=== PATIENT | female | born 1990 | race African-American/Black ===

== ENCOUNTER 2016-11-03 10:12 | Emergency (ER) | payer OTHER ==
[2016-11-03 10:15] VITALS: BP 129/67; PULSE 140; RESP 18; TEMP 99; O2SAT 97
[2016-11-03] MEDS ORDERED: diphenhydrAMINE HCL 50 MG/ML VIAL IV PUSH ONE (11:15)
[2016-11-03] MEDS ORDERED: PROCHLORPERAZINE INJ 10 MG/2 ML VIAL IV PUSH ONE (11:15)
[2016-11-03] MEDS ORDERED: SODIUM CHLOR 0.9% 1000 ML INJ 1,000 ML IV ONE ×2 (11:15→12:30)
[2016-11-03 11:58] LABS: BASOPHIL % 0.3 % (0.0-2.0); EOSINOPHIL % 0.1 % (0.0-4.0); LYMPH % 3.5 % (9.0-44.0); LYMPHOCYTE # 0.5 TH/MM3 (1.0-4.8); MEAN CELL VOLUME 65.2 FL (80.0-100.0); MEAN CORPUSCULAR HEMOGLOBIN 20.1 PG (27.0-34.0); MEAN CORPUSCULAR HGB CONC 30.9 % (32.0-36.0); MONO % 5.1 % (0.0-8.0); PLATELET COUNT 379 TH/MM3 (150-450); RED BLOOD COUNT 4.44 MIL/MM3 (4.00-5.30); RED CELL DISTRIBUTION WIDTH 18.8 % (11.6-17.2); WHITE BLOOD COUNT 14.3 TH/MM3 (4.0-11.0)
--- NOTE | 2016-11-03 12:00 | PD ---
HPI Chief Complaint: Cardiac Complaint Time Seen by Provider: 11:00 Travel History International Travel<30 days: No Contact w/Intl Traveler<30days: No Traveled to known affect area: No History of Present Illness HPI Is a 26 year-old woman who presents to the emergency department complaining that she woke up with pleuritic left-sided chest pain started about 1 AM last night. She is multiple other complaints including a pounding headache, some chills but no fever, as well as urinary frequency and urgency. She has a history of chest wall pain that she states she gets once a year or so, lasting a couple weeks, happening at least 4-5 times in the past. She also states she gets headaches daily, but this headache is more "pounding" and typical headaches that she gets. History Past Medical History Medical History: Denies Significant Hx Menopausal: No : 1 Para: 1 Social History Alcohol Use: No Tobacco Use: No Allergies-Medications (Allergen,Severity, Reaction): Coded Allergies: Toradol (Verified Allergy, Severe, LIPS SWELLING, 04/21/16) Reported Meds & Prescriptions Reported Meds & Active Scripts Active No Active Prescriptions or Reported Medications Review of Systems Except as stated in HPI: all other systems reviewed are Neg Physical Exam Narrative GENERAL: Well-appearing obese 26 year-old woman, no acute distress. SKIN: Focused skin assessment warm/dry. HEAD: Atraumatic. Normocephalic. EYES: Pupils equal and round. No scleral icterus. No injection or drainage. ENT: No nasal bleeding or discharge. Mucous membranes pink and moist. NECK: Trachea midline. No JVD. No meningismus. Moves neck freely. CARDIOVASCULAR: Heart rate rapid but regular. No murmurs. RESPIRATORY: No accessory muscle use. Clear to auscultation. Breath sounds equal bilaterally. GASTROINTESTINAL: Abdomen soft, non-tender, nondistended. Hepatic and splenic margins not palpable. MUSCULOSKELETAL: No obvious deformities. No clubbing. No cyanosis. No edema. NEUROLOGICAL: Awake and alert. No obvious cranial nerve deficits. Motor grossly within normal limits. Normal speech. PSYCHIATRIC: Appropriate mood and affect; insight and judgment normal. Data Data Last Documented VS Vital Signs Date Time Temp Pulse Resp B/P Pulse Ox O2 Delivery O2 Flow Rate FiO2 11/03/16 12:36 98.5 108 18 124/56 97 Room Air Orders Electrocardiogram (11/03/16 ) Chest, Pa & Lat (11/03/16 ) Iv Access Insert/Monitor (11/03/16 11:15) Prochlorperazine Inj (Compazine Inj) (11/03/16 11:15) Diphenhydramine Inj (Benadryl Inj) (11/03/16 11:15) Complete Blood Count With Diff (11/03/16 11:15) Comprehensive Metabolic Panel (11/03/16 11:15) Ua Includes Microscopic (11/03/16 11:15) Ed Urine Pregnancytest Poc (11/03/16 11:15) Troponin I (11/03/16 11:15) Sodium Chlor 0.9% 1000 Ml Inj (Ns 1000 M (11/03/16 11:15) Sodium Chlor 0.9% 1000 Ml Inj (Ns 1000 M (11/03/16 12:30) Ed Poc Ultrasound (11/03/16 ) Naproxen (Naprosyn) (11/03/16 12:45) Labs Laboratory Tests Test 11/03/16 11/03/16 11:32 13:15 White Blood Count 14.3 TH/MM3 Red Blood Count 4.44 MIL/MM3 Hemoglobin 8.9 GM/DL Hematocrit 29.0 % Mean Corpuscular Volume 65.2 FL Mean Corpuscular Hemoglobin 20.1 PG Mean Corpuscular Hemoglobin 30.9 % Concent Red Cell Distribution Width 18.8 % Platelet Count 379 TH/MM3 Mean Platelet Volume 7.0 FL Neutrophils (%) (Auto) 91.0 % Lymphocytes (%) (Auto) 3.5 % Monocytes (%) (Auto) 5.1 % Eosinophils (%) (Auto) 0.1 % Basophils (%) (Auto) 0.3 % Neutrophils # (Auto) 13.0 TH/MM3 Lymphocytes # (Auto) 0.5 TH/MM3 Monocytes # (Auto) 0.7 TH/MM3 Eosinophils # (Auto) 0.0 TH/MM3 Basophils # (Auto) 0.0 TH/MM3 CBC Comment AUTO DIFF Differential Comment AUTO DIFF CONFIRMED Sodium Level 137 MEQ/L Potassium Level 3.6 MEQ/L Chloride Level 104 MEQ/L Carbon Dioxide Level 23.9 MEQ/L Anion Gap 9 MEQ/L Blood Urea Nitrogen 9 MG/DL Creatinine 0.73 MG/DL Estimat Glomerular Filtration 115 ML/MIN Rate Random Glucose 97 MG/DL Calcium Level 8.4 MG/DL Total Bilirubin 0.4 MG/DL Aspartate Amino Transf 9 U/L (AST/SGOT) Alanine Aminotransferase 16 U/L (ALT/SGPT) Alkaline Phosphatase 101 U/L Troponin I LESS THAN 0.02 NG/ML Total Protein 7.4 GM/DL Albumin 2.8 GM/DL Urine Color LIGHT-YELLOW Urine Turbidity CLEAR Urine pH 7.0 Urine Specific [place] 1.007 Urine Protein NEG mg/dL Urine Glucose (UA) NEG mg/dL Urine Ketones NEG mg/dL Urine Occult Blood NEG Urine Nitrite NEG Urine Bilirubin NEG Urine Urobilinogen LESS THAN 2.0 MG/DL Urine Leukocyte Esterase NEG Urine RBC LESS THAN 1 /hpf Urine WBC 1 /hpf Urine Squamous Epithelial <1 /hpf Cells Urine Bacteria RARE /hpf Urine Mucus FEW /lpf MDM Medical Decision Making Medical Screen Exam Complete: Yes Emergency Medical Condition: Yes Interpretation(s) My review of EKG: Sinus tachycardia rate 1:30, normal axis, normal intervals, inferolateral T-wave inversions are nonspecific, compared to previous EKG from April 21 of last year, T wave inversions are more prominent. LABS: CBC remarkable for mild leukocytosis, mild anemia. CMP is unremarkable. Troponin negative UA is unremarkable. Differential Diagnosis Pleurisy, pericarditis, PE, costochondritis, other Narrative Course Medical decision making INITIAL: Is a 26-year-old woman who presents to the emergency department complaining of pleuritic chest pain, pounding headache, urinary frequency, and chills. She's had many ED visits in the past. Most recently had 2 visits for chest wall pain in August and April of last year. She had workups for PE. At time of 1 negative d-dimer, and the cycle with a positive d-dimer and a negative CTA. EKG today does look a little bit unusual with a rapid sinus tachycardia 130s as well as some lateral T wave inversions. EKG changes could suggest things like pericarditis. Last chest x-ray also suggests a cardiomegaly but it was an AP study. We'll get a PA and lateral chest. We'll check labs. Reassess. FINAL: 26 year-old woman presents emergency department multiple complaints, including most notably left-sided pleuritic chest pain, headache, and frequency , associated with an elevated heart rate, and some tachypnea. Patient had 2 workups or PE already, I don't think she has a PE to explain these recurrent episodes of pleuritic chest pain. She's not had the tachycardia before. She had a low-grade temperature when she came in. Is likely due to inflammation or infection. This would go along with the white blood cell count as well. She emphatically denies IV drug use. She looks otherwise well. She sleeping in the room now with a heart rate in the low 100s. I think she stay for discharge will need outpatient follow-up. We'll start her on some anti-inflammatory medicines, continue by mouth fluids. Procedures Procedure Narrative Plan care ultrasound: Focus transthoracic ultrasounds perform immediate the bedside to evaluate for possible pericardial effusion. No pericardial effusion was identified. Diagnosis Primary Impression: Atypical chest pain Additional Instructions: Take Naprosyn as prescribed. Drink plenty of fluids and stay well-hydrated. Return to the emergency department for any fevers, worsening chest pain, worsening trouble breathing, or any other new or worsening symptoms. Follow up with her primary doctor in the next 2-3 days. Med/Other Pt SpecificInfo: Prescription(s) given Scripts Naproxen (Naprosyn)500 Mg [id number] Mg PO BID PRN (PAIN SCALE 1 TO 10) #20 TAB Prov:Valeriano Tobias MD 11/03/16 Disposition: 01 DISCHARGE HOME Condition: Stable Valeriano Tobias MD Nov 03, 2016 12:00
[2016-11-03 12:01] LABS: HEMO FLAGS AUTO DIFF
--- NOTE | 2016-11-03 12:06 | RADRPT ---
EXAM DATE/TIME: 11/03/2016 11:56 [facility] COMPARISON: CHEST PA & LAT, January 15, 2014, 8:14. INDICATIONS : Patient has had chest pain since this morning. She also states shes been short of breath. MEDICAL HISTORY : None. SURGICAL HISTORY : None. ENCOUNTER: Initial ACUITY: 1 day PAIN SCORE: 6/10 LOCATION: Bilateral chest FINDINGS: PA and lateral views of the chest demonstrate the lungs to be symmetrically aerated without evidence of mass, infiltrate or effusion. The cardiomediastinal contours are unremarkable. Osseous structure s are intact. CONCLUSION: 1. No acute cardiopulmonary disease. Jaylon Stacy MD on November 03, 2016 at 12:04 Board Certified Radiologist. This report was verified electronically.
[2016-11-03 12:14] LABS: ANION GAP 9 MEQ/L (5-15); AST (GOT) 9 U/L (15-37); BICARBONATE 23.9 MEQ/L (21.0-32.0); BLOOD UREA NITROGEN 9 MG/DL (7-18); CHLORIDE 104 MEQ/L (98-107); GLOMERULAR FILTRATION RATE 115 ML/MIN (>89); POTASSIUM 3.6 MEQ/L (3.5-5.1); SODIUM (NA) 137 MEQ/L (136-145)
[2016-11-03 12:20] LABS: ALKALINE PHOSPHATASE 101 U/L (45-117); ALT (GPT) 16 U/L (10-53); TOTAL BILIRUBIN ADULT 0.4 MG/DL (0.2-1.0)
[2016-11-03 12:36] VITALS: BP 124/56; PULSE 108; RESP 18; TEMP 98.5; O2SAT 97
[2016-11-03 12:43] LABS: SCAN/DIFF AUTO DIFF CONFIRMED
[2016-11-03] MEDS ORDERED: NAPROXEN 500 MG TAB PO ONE (12:45)
[2016-11-03 13:47] LABS: BACTERIA, URINE RARE /hpf; BLOOD, URINE NEG (NEG); GLUCOSE,URINE NEG (NEG); KETONE, URINE NEG (NEG); MUCUS URINE FEW /lpf (OCC); NITRITE,URINE NEG (NEG); SQUAMOUS EPITHELIAL CELL URINE <1 /hpf (0-5); URINE COLOR LIGHT-YELLOW (YELLW/STRAW)
[2016-11-03] MEDS ORDERED: NAPR500 PO (14:05)
--- NOTE | 2016-11-03 22:43 | EKG ---
Date Performed: 11/03/2016 Time Performed: 10:46:47 PTAGE: 26 years EKG: SINUS TACHYCARDIA ST DEVIATION AND MODERATE T-WAVE ABNORMALITY ABNORMAL ECG PREVIOUS TRACING : 04/21/2016 08.28 Compared to the previous tracing rate faster DOCTOR: Nathalia López Interpretating Date/Time 11/03/2016 22:42:12
== END 2016-11-03 15:32 | disposition home or self-care (01) ==
LOC: NEPC 10:12
DX: R07.89 Other chest pain (principal); R51 Headache
CPT/HCPCS: 71020; 80053; 81001; 84484; 84703; 85025; 93005; 96374; 96375; 99284; J0780; J1200; J7030

== ENCOUNTER 2017-12-12 18:04 | Emergency (ER) | payer OTHER ==
[~2017-12-12] VITALS: Ht 172.7 cm; Wt 134.0 kg
[~2017-12-12 18:04] MED LIST: NAPR500 PO
[2017-12-12 18:09] VITALS: BP 127/71; PULSE 102; RESP 16; TEMP 98; O2SAT 100
[2017-12-12] MEDS ORDERED: SODIUM CHLOR 0.9% 1000 ML INJ 1,000 ML IV ONE (18:23)
--- NOTE | 2017-12-12 18:27 | PD ---
HPI Chief Complaint: Headache Time Seen by Provider: 18:16 Travel History International Travel<30 days: No Contact w/Intl Traveler<30days: No Traveled to known affect area: No History of Present Illness HPI This is a 27-year-old female who reports a long-standing history of migraines. She is currently experiencing a migraine which she describes as a pulsating right sided frontal headache. This is been ongoing for 2 days. She reports that she gets migraines on a weekly basis. She reports that over the past week or so she has had occasional lightheadedness and over the past 4 days she has had occasional blurred vision and this is different from her typical migraines. She is not currently experiencing any lightheadedness or blurred vision. No obvious aggravating or alleviating factors. She also reports that she has had dysuria for 1 week. Denies fevers, chills, flank pain, vaginal bleeding or discharge. Her last menstrual period was December 09. No other complaints at this time. PFSH Past Medical History Hx Anticoagulant Therapy: No Anxiety: Yes Depression: Yes Cardiovascular Problems: No Chemotherapy: No Cerebrovascular Accident: No Diabetes: No Diminished Hearing: No Musculoskeletal: Yes ("has back pain all the time, guess it is because my breasts are too big") Respiratory: Yes (UTI) Immunizations Current: No ?: Not LMP: 12/09/17 Menopausal: No : 1 Para: 1 Miscarriage: 0 : 0 Past Surgical History Section: Yes Genitourinary Surgery: Yes Hysterectomy: No Social History Alcohol Use: No Tobacco Use: No Substance Use: No Allergies-Medications (Allergen,Severity, Reaction): Coded Allergies: ketorolac (Unverified Allergy, Severe, LIPS SWELLING, 12/12/17) Reported Meds & Prescriptions Reported Meds & Active Scripts Active Naprosyn (Naproxen) 500 Mg Tab 500 Mg PO BID PRN Reported Cipro (Ciprofloxacin HCl) 500 Mg Tab 500 Mg PO BID Review of Systems Except as stated in HPI: all other systems reviewed are Neg Physical Exam Narrative GENERAL: Well-nourished female no acute distress. Ambulatory to the bathroom with no gait disturbance. SKIN: Warm and dry. HEAD: Atraumatic. Normocephalic. EYES: Pupils equal and round. No scleral icterus. No injection or drainage. ENT: No nasal bleeding or discharge. Mucous membranes pink and moist. NECK: Trachea midline. No JVD. CARDIOVASCULAR: Regular rate and rhythm. No murmur appreciated. RESPIRATORY: No accessory muscle use. Clear to auscultation. Breath sounds equal bilaterally. GASTROINTESTINAL: Abdomen soft, non-tender, nondistended. Hepatic and splenic margins not palpable. MUSCULOSKELETAL: No obvious deformities. No clubbing. No cyanosis. No edema. NEUROLOGICAL: Awake and alert. No obvious cranial nerve deficits. Motor grossly within normal limits. Normal speech. PSYCHIATRIC: Appropriate mood and affect; insight and judgment normal. Data Data Last Documented VS Vital Signs Date Time Temp Pulse Resp B/P (MAP) Pulse Ox O2 Delivery O2 Flow Rate FiO2 12/12/17 19:14 86 17 161/63 (95) 100 Room Air 12/12/17 18:09 98.0 Orders Orders Basic Metabolic Panel (Bmp) (12/12/17 18:23) Complete Blood Count With Diff (12/12/17 18:23) Urinalysis - C+S If Indicated (12/12/17 18:23) Iv Access Insert/Monitor (12/12/17 18:23) Electrocardiogram (12/12/17 18:23) Ed Urine Pregnancytest Poc (12/12/17 18:23) Ct Brain W/O Iv Contrast(Rout) (12/12/17 18:23) Diphenhydramine Inj (Benadryl Inj) (12/12/17 18:30) Metoclopramide Inj (Reglan Inj) (12/12/17 18:30) Sodium Chlor 0.9% 1000 Ml Inj (Ns 1000 M (12/12/17 18:23) Potassium Chloride (Kcl) (12/12/17 20:00) Ed Discharge Order (12/12/17 19:55) Labs Laboratory Tests Test 12/12/17 19:00 White Blood Count 7.2 TH/MM3 Red Blood Count 4.36 MIL/MM3 Hemoglobin 8.8 GM/DL Hematocrit 27.8 % Mean Corpuscular Volume 63.7 FL Mean Corpuscular Hemoglobin 20.1 PG Mean Corpuscular Hemoglobin Concent 31.6 % Red Cell Distribution Width 19.3 % Platelet Count 481 TH/MM3 Mean Platelet Volume 7.0 FL Neutrophils (%) (Auto) 61.9 % Lymphocytes (%) (Auto) 30.2 % Monocytes (%) (Auto) 6.3 % Eosinophils (%) (Auto) 1.2 % Basophils (%) (Auto) 0.4 % Neutrophils # (Auto) 4.4 TH/MM3 Lymphocytes # (Auto) 2.2 TH/MM3 Monocytes # (Auto) 0.5 TH/MM3 Eosinophils # (Auto) 0.1 TH/MM3 Basophils # (Auto) 0.0 TH/MM3 CBC Comment DIFF FINAL Differential Comment Urine Color LIGHT-YELLOW Urine Turbidity CLEAR Urine pH 7.0 Urine Specific [place] 1.010 Urine Protein NEG mg/dL Urine Glucose (UA) NEG mg/dL Urine Ketones NEG mg/dL Urine Occult Blood NEG Urine Nitrite NEG Urine Bilirubin NEG Urine Urobilinogen LESS THAN 2.0 MG/DL Urine Leukocyte Esterase MOD Urine RBC LESS THAN 1 /hpf Urine WBC 1 /hpf Urine Squamous Epithelial Cells 1 /hpf Microscopic Urinalysis Comment CULT NOT INDICATED Blood Urea Nitrogen 10 MG/DL Creatinine 0.76 MG/DL Random Glucose 102 MG/DL Calcium Level 8.1 MG/DL Sodium Level 141 MEQ/L Potassium Level 3.2 MEQ/L Chloride Level 107 MEQ/L Carbon Dioxide Level 27.6 MEQ/L Anion Gap 6 MEQ/L Estimat Glomerular Filtration Rate 109 ML/MIN [facility] Medical Decision Making Medical Screen Exam Complete: Yes Emergency Medical Condition: Yes Medical Record Reviewed: Yes Differential Diagnosis Migraine, pseudotumor cerebri, tension headache, intracranial mass, hyperglycemia, cystitis Narrative Course 27-year-old female with history of migraines presents with a right-sided frontal pulsating headache consistent with previous migraines however she has been experiencing occasional blurred vision lightheadedness over the past several days, none currently. Also experience and dysuria for 1 week. Physical examination is benign. Normal neurologic examination. Given her new subjective findings, CT the brain is been ordered. She will be given Reglan, Benadryl and IV fluids for migraine treatment. Urinalysis, basic lab work is been ordered. CBC reveals a hemoglobin of 8.8, microcytic; she reports a history of iron deficiency anemia. She reports that she switched doctors in June and quit taking iron supplements at that time. Her hemoglobin is slightly lower than previous results on record and this may be contributing to her lightheadedness. She was informed of the results and advised to start taking iron supplements again. Potassium is 3.2, oral potassium chloride ordered. Her headache resolved after administration of Reglan, Benadryl and fluids. She is stable for discharge. Diagnosis Primary Impression: Migraine Additional Impression: Microcytic anemia Additional Instructions: Begin taking iron supplementation again. Follow-up with primary care physician. Return for any emergent medical conditions. Med/Other Pt SpecificInfo: No Change to Meds Disposition: 01 DISCHARGE HOME Condition: Stable Santana Johnson December 12, 2017 18:27
[2017-12-12] MEDS ORDERED: METOCLOPRAMIDE HCL 10 MG/2 ML VIAL IVP ONE (18:30)
[2017-12-12] MEDS ORDERED: diphenhydrAMINE HCL 50 MG/ML VIAL IVP ONE (18:30)
[2017-12-12] MEDS ORDERED: CIPR-9 PO (18:39)
[2017-12-12 19:14] VITALS: BP 161/63; PULSE 86; RESP 17; O2SAT 100
[2017-12-12 19:21] LABS: AUTOMATED NEUTROPHIL # 4.4 TH/MM3 (1.8-7.7); BASOPHIL % 0.4 % (0.0-2.0); EOSINOPHIL # 0.1 TH/MM3 (0-0.4); EOSINOPHIL % 1.2 % (0.0-4.0); HEMATOCRIT 27.8 % (35.0-46.0); HEMOGLOBIN 8.8 GM/DL (11.6-15.3); LYMPH % 30.2 % (9.0-44.0); LYMPHOCYTE # 2.2 TH/MM3 (1.0-4.8); MEAN CELL VOLUME 63.7 FL (80.0-100.0); MEAN CORPUSCULAR HEMOGLOBIN 20.1 PG (27.0-34.0); MEAN CORPUSCULAR HGB CONC 31.6 % (32.0-36.0); MONO % 6.3 % (0.0-8.0); MONOCYTE # 0.5 TH/MM3 (0-0.9); NEUT % 61.9 % (16.0-70.0); PLATELET COUNT 481 TH/MM3 (150-450); RED BLOOD COUNT 4.36 MIL/MM3 (4.00-5.30); RED CELL DISTRIBUTION WIDTH 19.3 % (11.6-17.2); WHITE BLOOD COUNT 7.2 TH/MM3 (4.0-11.0)
--- NOTE | 2017-12-12 19:24 | RADRPT ---
EXAM DATE/TIME: 12/12/2017 19:06 [facility] COMPARISON: CT BRAIN W/O CONTRAST, May 22, 2015, 10:35. INDICATIONS : Cehpalgia, feeling lightheaded with blurry vision. RADIATION DOSE: 56.35 CTDIvol (mGy) MEDICAL HISTORY : None SURGICAL HISTORY : section. ENCOUNTER: Initial ACUITY: 2 days PAIN SCALE: 6/10 LOCATION: cranial TECHNIQUE: Multiple contiguous axial images were obtained of the head. Using automated exposure control and adj ustment of the mA and/or kV according to patient size, radiation dose was kept as low as reasonably a chievable to obtain optimal diagnostic quality images. DICOM format image data is available electro nically for review and comparison. FINDINGS: CEREBRUM: The ventricles are normal for age. No evidence of midline shift, mass lesion, hemorrhage or acute in farction. No extra-axial fluid collections are seen. POSTERIOR FOSSA: The cerebellum and brainstem are intact. The 4th ventricle is midline. The cerebellopontine angle i s unremarkable. EXTRACRANIAL: The visualized portion of the orbits is intact. SKULL: The calvaria is intact. No evidence of skull fracture. CONCLUSION: No acute disease. Tereso Escobedo MD on December 12, 2017 at 19:22 Board Certified Radiologist. This report was verified electronically.
[2017-12-12 19:29] LABS: BILIRUBIN, URINE NEG (NEG); BLOOD, URINE NEG (NEG); GLUCOSE,URINE NEG (NEG); KETONE, URINE NEG (NEG); NITRITE,URINE NEG (NEG); SQUAMOUS EPITHELIAL CELL URINE 1 /hpf (0-5); URINE COLOR LIGHT-YELLOW (YELLW/STRAW); URINE LEUKOCYTE ESTERASE MOD (NEG)
[2017-12-12 19:50] LABS: BICARBONATE 27.6 MEQ/L (21.0-32.0); CALCIUM 8.1 MG/DL (8.5-10.1); CREATININE 0.76 MG/DL (0.50-1.00)
[2017-12-12] MEDS ORDERED: POTASSIUM CHLORIDE 20 MEQ CONTROLLED RELEASE TAB PO ONE (20:00)
--- NOTE | 2017-12-15 12:01 | EKG ---
Date Performed: 12/12/2017 Time Performed: 18:44:32 PTAGE: 27 years EKG: Sinus rhythm NONSPECIFIC T-WAVE ABNORMALITY BORDERLINE ECG PREVIOUS TRACING : 11/03/2016 10.46 DOCTOR: Valeriano Dominguez Interpretating Date/Time 12/15/2017 12:00:11
== END 2017-12-12 20:28 | disposition home or self-care (01) ==
LOC: NEPD 18:04
DX: G43.909 Migraine, unspecified, not intractable, without status migrainosus (principal); D50.9 Iron deficiency anemia, unspecified; R94.31 Abnormal electrocardiogram [ECG] [EKG]
CPT/HCPCS: 70450; 80048; 81001; 84703; 85025; 93005; 96361; 96374; 96375; 99285; J1200; J2765; J7030